=== PATIENT | male | born 1935 ===

== ENCOUNTER 2025-01-16 13:22 | Outpatient (CLI) | payer MEDICARE, MEDICAID ==
--- NOTE | 2025-01-16 13:59 | DVH ---
Procedure: CT HEAD WITHOUT CONTRAST Study Date and Requested Time: 01/16/2025 01:20 PM History: HEADACHES Comparison: None Dose: CTDI: 49.23 mGy DLP: 886.09 mGycm Technique: Multiplanar images obtained through the brain without intravenous contrast. Findings: [id number] diffuse brain Atrophy. Mild chronic small vessel ischemic changes. No hemorrhages, masses, mass effect, midline shift, herniation or cytotoxic edema following a large v ascular territory. No intra-axial or extra-axial fluid collections. No evidence of hydrocephalus. The basal cisterns are patent. The pituitary gland, sella and parasellar regions are unremarkable. The cerebellar tonsils are in nor mal position. The cerebellum is unremarkable. The orbits and globes are unremarkable. Mild mucoperiosteal thickening of the ethmoid air cells. The remainder of the paranasal sinuses are clear. Partial opacification of the left mastoid. Erosive marissa nges of the right lateral mastoid versus postsurgical changes. No opacification of the right mastoid air cells. There are no worrisome calvarial lesions. Impression: No evidence of acute intracranial abnormality. If symptoms persist, consider MRI for further evaluati on. Left mastoid disease.
--- NOTE | 2025-01-16 15:43 | DVHSR ---
APPROVED REPORT EXAM: Two-dimensional and M-mode echocardiogram with Doppler and color Doppler. DIMENSIONS LVDd4.2 (3.8-5.7cm)LA (2D)3.3 (1.9-4.0cm)Aortic Root3.8 (2.0-3.7cm) LVDs2.7 (2.5-4.0cm)LA (MM) (1.9-4.0cm)Aortic Cusp Exc1.4 (1.5-2.0cm) EF (%) 63.0 (55-70%)Rt. Atrium3.7 (1.9-4.0cm)Asc. Aorta cm IVSd1.1 (0.7-1.1cm)RV (D)3.5 (1.8-2.4cm) PWd1.0 (0.7-1.1cm) Mitral Valve MitralMitral Stenosis E wave0.65m/sMV Mean GR.mmHg A wave0.77m/sMV Peak GR.mmHg E/A ratio0.82D MVAcm2 DECEL [id number] 1/2 [place] Aortic Valve Aortic ValveAortic Stenosis V11.00m/Dominic Mean GR.3mmHg V21.24m/Dominic Peak GR.6mmHg LVOT Diameter1.8 (1.8-2.4cm)Doppler AVA2.05cm2 AI P 1/2 Yhhd334.58ms Pulmonic Valve V21.13m/s Tricuspid Valve TR Velocity2.84m/s [id number] LEFT VENTRICLE The left ventricle is normal size. The left ventricle is normal in structure and function. The Ejection Fraction is within normal limits. RIGHT VENTRICLE The right ventricle is normal size. ATRIA The left atrial size is normal. The right atrium size is normal. The interatrial septum is intact with no evidence for an atrial septal defect. MITRAL VALVE The mitral valve is normal in structure. Mitral regurgitation is mild. PULMONIC VALVE The pulmonic valve is not well visualized. TRICUSPID VALVE The tricuspid valve is grossly normal. There is mild tricuspid regurgitation. Right ventricular systolic pressure is 30-40 mmHg. AORTIC VALVE The aortic valve opens well. The aortic valve is mildly sclerotic. There is mild aortic regurgitation. GREAT VESSELS The aortic root is normal size. PERICARDIAL EFFUSION There is no pericardial effusion. Conclusion EF >55% MILD TR MILD MR MILD AI MILD AV SCLEROSIS
== END 2025-01-16 17:00 | disposition home or self-care (01) ==
LOC: Rad HDHVI 13:22
PROVIDERS: ATTEND Internal Medicine Cardiovascular Disease
DX: I08.3 Combined rheumatic disorders of mitral, aortic and tricuspid valves (principal); I67.82 Cerebral ischemia; G31.89 Other specified degenerative diseases of nervous system; H74.8X2 Other specified disorders of left middle ear and mastoid; R51.9 Headache, unspecified
CPT/HCPCS: 70450; 93306